=== PATIENT | female | born 1995 | race Caucasian/White ===

== ENCOUNTER 2021-03-09 22:01 | Emergency (ER) | payer MEDICAID ==
[~2021-03-09] VITALS: Ht 165.1 cm; Wt 77.1 kg
[2021-03-09 22:05] VITALS: BP_SYST 124
--- NOTE | 2021-03-09 22:05 | NUR ---
Patient triaged and placed in waiting room. VSS and patient appears in no acute distress at this time. awaiting available bed, and MD notified of need for MSE.
[2021-03-10 00:05] VITALS: BP_SYST 121
--- NOTE | 2021-03-10 01:00 | NUR ---
call pt name in the waiting room.No answer.
--- NOTE | 2021-03-10 01:05 | NUR ---
call pt name in the waiting room.No answer.
--- NOTE | 2021-03-10 01:10 | NUR ---
call pt name in the waiting room.No answer.
== END 2021-03-10 01:10 | disposition left against medical advice (07) ==
LOC: SED 22:01
DX: R21 Rash and other nonspecific skin eruption (principal); Z53.21 Procedure and treatment not carried out due to patient leaving prior to being seen by health care provider